=== PATIENT | female | born 1945 | race Caucasian/White ===

== ENCOUNTER → 2021-02-22 | Outpatient (CLI) | payer MEDICARE, OTHER ==
--- NOTE | 2021-02-22 10:48 | Diagnostic Imaging Report ---
PROCEDURE: CT abdomen without contrast. TECHNIQUE: Multiple contiguous axial images were obtained through the abdomen without the use of intravenous contrast. Auto Exposure Controls were utilized during the CT exam to meet ALARA standards for radiation dose reduction. INDICATION: Intermittent right upper quadrant abdominal pain. No prior studies are available for comparison. FINDINGS: Lung bases are clear. No discrete liver mass is identified. Gallbladder appears to be surgically absent. There is no biliary ductal dilatation. The pancreas and spleen are unremarkable. No adrenal mass is identified. No renal calculi are detected. There is no hydronephrosis. Aorta is nonaneurysmal. 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 There is some moderate stool in the colon. Bowel loops appear to be nonobstructed. There appears to be very small abdominal wall defect in the midline upper abdomen at the level of the stomach and just below this level containing fat. No herniated bowel loops are seen. There is no bowel obstruction. There is no free fluid detected. Postoperative changes in the lumbar spine are noted. IMPRESSION: 1. Very small fat-containing midline ventral hernias. No herniated bowel loops or evidence of intestinal obstruction is identified. 2. Moderate stool in the colon. Dictated by: Dictated on workstation # [id number]
== END ==
LOC: RAD FS 10:03
PROVIDERS: ATTEND Family Medicine
DX: K43.9 Ventral hernia without obstruction or gangrene (principal)
CPT/HCPCS: 74150